=== PATIENT | female | born 1955 | race Caucasian/White ===

== ENCOUNTER 2024-02-15 11:49 | Emergency (ER) | payer SELFPAY ==
[~2024-02-15] VITALS: Ht 160 cm; Wt 62.1 kg
[2024-02-15 11:54] VITALS: BP 127/73; PULSE 91; RESP 18; TEMP 97.8; O2SAT 97
[2024-02-15 13:12] LABS: BASOPHILS % (AUTO) 0.3 % (0.0-2.0); EOSINOPHILS % (AUTO) 0.5 % (0.0-4.0); HEMATOCRIT 37.7 % (36-48); HEMOGLOBIN 13.3 g/dL (12.0-16.0); LYMPHOCYTES # (AUTO) 1.7 K/uL (2.5-16.5); LYMPHOCYTES % (AUTO) 22.2 % (20.5-51.1); MEAN CORPUSCULAR HEMOGLOBIN 30 pg (27-31); MEAN CORPUSCULAR HGB CONC 35 g/dL (33-37); MEAN CORPUSCULAR VOLUME 84.4 fL (80-94); MONOCYTES # (AUTO) 0.8 K/uL (0.8-1.0); MONOCYTES % (AUTO) 10.4 % (1.7-9.3); NEUTROPHILS # (AUTO) 5.1 K/uL (1.8-7.7); NEUTROPHILS % (AUTO) 66.6 % (42.2-75.2); PLATELET COUNT (AUTO) 398 K/uL (140-450); RED BLOOD CELL COUNT(AUTO) 4.47 MIL/uL (4.20-5.40); RED CELL DISTRIBUTION WIDTH 14.7 % (11.6-13.7); WHITE BLOOD COUNT (AUTO) 7.7 K/uL (4.8-10.8)
[2024-02-15] MEDS: NACL 0.9% 1,000 ML IV ONE (13:14)
[2024-02-15] MEDS: ONDANSETRON 4 MG/2 ML VIAL IVP ONE (13:14)
[2024-02-15] MEDS: MORPHINE SULFATE 4 MG/ML SYR IVP ONE (13:14)
[2024-02-15 13:25] LABS: APPEARANCE,URINE CLEAR (CLEAR); BILIRUBIN,URINE NEGATIVE (NEGATIVE); BLOOD, URINE NEGATIVE (NEGATIVE); COLOR,URINE YELLOW (YELLOW); LEUKOCYTE ESTERASE ,URINE NEGATIVE (NEGATIVE); NITRITE, URINE NEGATIVE (NEGATIVE); PROTEIN,URINE NEGATIVE (NEGATIVE); UGLUCOSE NEGATIVE (NEGATIVE)
[2024-02-15 13:26] LABS: CALCIUM 9.5 mg/dL (8.5-10.1); CARBON DIOXIDE 26.5 mmol/L (21-32); CREATININE 0.8 mg/dL (0.6-1.3); POTASSIUM 3.5 mmol/L (3.5-5.1)
[2024-02-15 13:30] LABS: ALBUMIN 3.4 g/dL (3.4-5.0); BILIRUBIN,DIRECT 0.2 mg/dL (0.0-0.3); TOTAL BILIRUBIN 0.8 mg/dL (0.0-1.0); TOTAL PROTEIN, SERUM 8.3 g/dL (6.4-8.2)
[2024-02-15] MEDS: KETOROLAC 30 MG/ML VIAL IVP ONE (15:47)
[2024-02-15] MEDS ORDERED: ONDA-188 PO (17:23)
[2024-02-15] MEDS ORDERED: NAPR-54 PO (17:23)
[2024-02-15] MEDS ORDERED: ACET-8905 PO (17:23)
[2024-02-15 17:45] VITALS: BP 123/66; PULSE 68; RESP 17; TEMP 97.8; O2SAT 99
== END 2024-02-15 17:45 | disposition home or self-care (01) ==
LOC: MED 11:49
DX: R10.11 Right upper quadrant pain (principal); R11.10 Vomiting, unspecified; I10 Essential (primary) hypertension; Z79.899 Other long term (current) drug therapy
CPT/HCPCS: 36415; 74177; 76705; 80048; 80076; 81003; 83690; 85025; 87040; 96361; 96374; 96375; 99285; J1885; J2270; J2405; J7030; Q0092; Q9967